=== PATIENT | male | born 1975 | race American Indian/Alaskan Native ===

== ENCOUNTER 2016-07-03 15:06 | Emergency (ER) | payer OTHER ==
[2016-07-03 15:30] VITALS: BP 125/80
--- NOTE | 2016-07-03 17:07 | Emergency Department Report ---
HPI - General Chief Complaint: Dental/Oral Time Seen by Provider: 07/03/16 16:32 - HPI HPI: The patient is a 40-year-old male who presents to ED complaining of swelling the right side of his mouth x 2 days . Patient states the pain is alleviated initially with weight relief. Patient states he took an Aleve yesterday and relieved the pain. Patient also states he took an Aleve earlier today. Patient states otherwise well and has no other complaints. Patient has had no fevers and no chills. No chest pain, no shortness of breath. No abdominal pain. No shortness of breath or recent trauma to the face. ED Past Medical Hx - Past Medical History Previous Medical History?: No - Surgical History Past Surgical History?: Yes Additional Surgical History: hernia repair - Social History Smoking Status: Never Smoker Substance Use Type: None - Medications Home Medications: Home Medications Medication Instructions Recorded Confirmed Last Taken Type Amoxicillin/K Clav Tab [Augmentin 1 tab PO Q12HR #20 tab 07/03/16 Unknown Rx 875 mg] Ibuprofen [Motrin] 800 mg PO Q8HR PRN #30 tablet 07/03/16 Unknown Rx ED Review of Systems ROS: Stated complaint: POSS TOOTH ABSCESS Other details as noted in HPI Constitutional: denies: chills, fever Eyes: denies: eye pain, eye discharge, vision change ENT: dental pain. denies: ear pain, throat pain, hearing loss, congestion Respiratory: denies: cough, shortness of breath, wheezing Cardiovascular: denies: chest pain, palpitations Endocrine: no symptoms reported Gastrointestinal: denies: abdominal pain, nausea, diarrhea Genitourinary: denies: urgency, dysuria Musculoskeletal: denies: back pain, joint swelling, arthralgia Skin: denies: rash, lesions Neurological: denies: headache, weakness, paresthesias Psychiatric: denies: anxiety, depression Hematological/Lymphatic: denies: easy bleeding, easy bruising Physical Exam - Physical Exam Vital Signs: Vital Signs 07/03/16 15:26 Temperature 98.1 F Pulse Rate 70 Respiratory 18 Rate Blood Pressure 125/80 O2 Sat by Pulse 100 Oximetry Physical Exam: GENERAL: Alert and oriented x3, no apparent distress, Normal Gait, atraumatic. HEAD: Head is normocephalic and a-traumatic. EYES: Extra ocular muscles are intact. Pupils are equal, round, and reactive to light and accommodation. EARS: symetrical, atraumatic, non tender, ear canal clear and moderate cerumen, tympanic membrance non inflamed. gross auditory nml bilaterally. NOSE: Nose symetrical, Nontender,Nares appeared normal. MOUTH:Mouth is well hydrated and without lesions. Tonsils nonerythematous or swollen, Uvula midline, Tongue not elevated. Mucous membranes are moist. Posterior pharynx clear, no exudate or lesions. Patent airways. Multiple fillings seen in the lower teeth. Mild nontender abscess on lower right gingiva. NECK: Supple. Non edematous, No carotid bruits. No lymphadenopathy or thyromegaly. No C-spine tenderness LUNGS: Symetrical with respiration, No wheezing, no rales or crackles, CTAB. HEART: S1, S2 present, regular rate and rhythm without murmur, no rubs, no gallops. PSYCHIATRIC: Mood is congruent with affect, denies suicidal or homicidal ideations. SKIN: Warm and dry, No lesions, No ulceration or induration present. ED Course Vital Signs 07/03/16 15:26 Temperature 98.1 F Pulse Rate 70 Respiratory 18 Rate Blood Pressure 125/80 O2 Sat by Pulse 100 Oximetry ED Medical Decision Making - Medical Decision Making Patient is a 40-year-old male presents with a mild nontender dental abscess. ED course: Discussed patient take medication as prescribed. Discussed follow-up with since this is a minute. Discussed the take antibiotics as prescribed and then follow up with dentist has referred in 3-5 days. Patient's vital signs are normal patient is in no acute distress. Critical care attestation.: If time is entered above; I have spent that time in minutes in the direct care of this critically ill patient, excluding procedure time. ED Disposition Clinical Impression: Dental abscess Disposition: DISCHARGED TO HOME OR SELFCARE Is pt being admited?: No Does the pt Need Aspirin: No Condition: Stable Instructions: Dental Abscess (ED) Prescriptions: Amoxicillin/K Clav Tab [Augmentin 875 mg] 1 tab PO Q12HR #20 tab Ibuprofen [Motrin] 800 mg PO Q8HR PRN #30 tablet PRN Reason: Pain Referrals: PRIMARY CARE, [Primary Care Provider] - 3-5 Days [facility] [Outside] - 3-5 Days [facility] [Outside] - 3-5 Days [facility] [Outside] - 3-5 Days Forms: Work/School Release Form(ED) Time of Disposition: 17:18
== END 2016-07-03 17:56 | disposition home or self-care (01) ==
LOC: ED 15:06
DX: K04.7 Periapical abscess without sinus (principal)
CPT/HCPCS: 99282

== ENCOUNTER 2021-02-08 02:20 | Emergency (ER) | payer OTHER ==
[2021-02-08 02:37] VITALS: BP 119/76
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
== END 2021-02-08 03:59 | disposition home or self-care (01) ==
LOC: ED 02:20
DX: S39.012A Strain of muscle, fascia and tendon of lower back, initial encounter (principal); M62.830 Muscle spasm of back; V89.2XXA Person injured in unspecified motor-vehicle accident, traffic, initial encounter; Y93.89 Activity, other specified; Y92.89 Other specified places as the place of occurrence of the external cause; Y99.8 Other external cause status
CPT/HCPCS: 99282